=== PATIENT | female | born 1990 | race Caucasian/White ===

== ENCOUNTER 2020-11-30 09:40 | Emergency (ER) | payer BC, OTHER ==
[~2020-11-30] VITALS: Ht 170.2 cm; Wt 57.8 kg
[2020-11-30 09:42] VITALS: BP 107/79
--- NOTE | 2020-11-30 10:40 | NUR ---
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
--- NOTE | 2020-11-30 10:45 | NUR ---
PT HAS CO MIGRAINE. GOT WHIPLASH YESTERDAY AT THE [facility]. N/V THIS AM. UNABLE TO KEEP FLUIDS DOWN AT THIS TIME
[2020-11-30] MEDS ORDERED: SODIUM CHLORIDE FLUSH 10ML SYR IVF ONE (11:00)
[2020-11-30] MEDS ORDERED: SODIUM CHLORIDE 0.9% 1,000ML IVBOLUS ONE (11:00)
[2020-11-30] MEDS ORDERED: KETOROLAC 30 MG/1 ML IVPush ONE (11:00)
[2020-11-30] MEDS ORDERED: METOCLOPRAMIDE 5 MG/ML, 2ML IVPush ONE (11:00)
[2020-11-30] MEDS ORDERED: DIPHENHYDRAMINE 50 MG/ML, 1ML IVPush ONE (11:00)
[2020-11-30] MEDS ORDERED: DIPHENHYDRAMINE 50 MG/ML, 1ML ONE (11:23)
[2020-11-30] MEDS ORDERED: KETOROLAC 30 MG/1 ML ONE (11:23)
[2020-11-30] MEDS ORDERED: METOCLOPRAMIDE 5 MG/ML, 2ML ONE (11:23)
--- NOTE | 2020-11-30 11:37 | NUR ---
MEDICATED PER ORDERS, DIMMED LIGHTS GIVEN WARM BLANKET
== END 2020-11-30 12:51 | disposition home or self-care (01) ==
LOC: ED 12:45
DX: G43.909 Migraine, unspecified, not intractable, without status migrainosus (principal); R11.2 Nausea with vomiting, unspecified
CPT/HCPCS: 96361; 96374; 96375; 99284; J1200; J1885; J2765; J7030